=== PATIENT | female | born 1995 | race Caucasian/White ===

== ENCOUNTER 2016-06-19 16:18 | Emergency (ER) | payer OTHER ==
--- NOTE | 2016-06-19 19:18 | ED CLINICAL REPORT ---
Clinical Report - Physicians/Mid Levels [facility] [address] [place] [address] 06/19/2016 16:23 [id number] Time Seen: 17:12; initial patient contact. Arrived- By private vehicle. Historian- patient. HISTORY OF PRESENT ILLNESS Chief Complaint: VOMITING. This started today and is still present. It was gradual in onset. The patient has had nausea and vomiting. No diarrhea, abdominal pain, constipation or flank pain. The illness is described as mild. Similar symptoms previously: None. Recent medical care: Not recently seen/assessed. REVIEW OF SYSTEMS No fever or headache. She has had epistaxis and nasal congestion. All systems otherwise negative, except as recorded above. PAST HISTORY . Allergic Reaction. Additional Surgeries: no known surgeries. Medications: Vitamins Oral. Allergies: No Known Drug Allergy. SOCIAL HISTORY Never smoker. No alcohol use or drug use. ADDITIONAL NOTES The nursing notes have been reviewed with agreement regarding the chief complaint, PMH and patient medications and allergies. PHYSICAL EXAM Vital Signs: 06/19/2016 17:00 BP: 114/54. HR: 96. RR: 18. O2 saturation: 100%. Temp: 98.8 F. Pain level now: 2/10. Have been reviewed. Hypotensive. Heart rate normal. Respiratory rate normal. Temperature normal. Oxygen saturation normal. Appearance: Alert. Oriented X3. No acute distress. Eyes: Eyes normal inspection. ENT: Pharynx normal. CVS: Normal heart rate and rhythm. Heart sounds normal. Respiratory: No respiratory distress. Breath sounds normal. Abdomen: Soft and nontender. Bowel sounds normal. Back: Normal inspection. No CVA tenderness. Skin: Skin warm and dry. Normal skin color. No rash. Normal skin turgor. Extremities: No lower extremity edema. Neuro: Oriented X 3. LABS, X-RAYS, AND EKG Laboratory Tests: UA-Culture if indicated: (RENEA: 06/19/2016 18:35) ( MsgRcvd 06/19/2016 18:57) Final results Test Result Flag Units (Reference) URINE COLOR YELLOW URINE APPEARANCE CLEAR URINE GLUCOSE NEGATIVE (NEGATIVE) URINE BILIRUBIN NEGATIVE (NEGATIVE) URINE KETONE 3+ (NEGATIVE) URINE SPECIFIC GRAVITY 1.025 (1.010-1.030) URINE PH 6.5 (5.0-8.0) URINE PROTEIN NEGATIVE (NEGATIVE) URINE UROBILINOGEN 0.2 EU/dL (0.2-1.0) URINE NITRITE NEGATIVE (NEGATIVE) URINE BLOOD NEGATIVE (NEGATIVE) URINE LEUK ESTERASE TRACE (NEGATIVE) URINE RBC 1-3 rbc/hpf (0-1) URINE WBC 3-5 wbc/hpf (0-1) URINE EPITHELIAL CELLS 3-5 EPI/hpf (0-5) URINE BACTERIA FEW (1+) (NONE SEEN) URINE COMMENT CULTURE INDICATED MUCUS 3+URINE CULTURES ARE SET-UP BASED ON THE FOLLOWING CRITERIA:POSITIVE NITRITEPOSITIVE LEUKOCYTE ESTERASEGREATER THAN 10 WHITE BLOOD CELLSMODERATE (2+) OR GREATER BACTERIA CBC w Diff: (RENEA: 06/19/2016 18:10) ( [facility] 06/19/2016 18:31) Final results Test Result Flag Units (Reference) WHITE BLOOD COUNT 10.8 K/uL (4.5-11.5) RED BLOOD COUNT 4.07 M/uL (4.00-5.20) HEMOGLOBIN 12.2 gm/dL (12.0-16.0) HEMATOCRIT 37.0 % (36.0-46.0) MEAN CELL VOLUME 91 fL (80-100) MEAN CORPUSCULAR HGB 30 pg (26-34) MEAN CORPUSCULAR HGB CONC 33 g/dL (31-37) RED CELL DISTRIBUTION WIDTH 12.9 % (11.6-14.8) PLATELET COUNT 117 L K/uL (150-400) NEUTROPHIL % 90.4 H % (50-75) LYMPH % 4.3 L % (25-40) MONO % 4.4 % (3-14) EOSINOPHIL % 0.5 % (0-4) BASOPHIL % 0.4 % (0-2) CMP: (RENEA: 06/19/2016 18:10) ( [facility] 06/19/2016 18:38) Final results Test Result Flag Units (Reference) GLUCOSE 83 mg/dL (70-110) BUN 7 mg/dL (7-18) CREATININE 0.5 L mg/dL (0.6-1.3) Estimated GFR >60 mL/min Estimated GFR- >60 mL/min Note: Persistent reduction over 3 months in eGFR<60 mL/min/1.73 m2 defines CKD. Patients with eGFR values>=60 mL/min/1.73 m2 may also have CKD if evidence ofpersistent proteinuria. Additional information may be foundat www.kidney.org. SODIUM 126 L mmol/L (136-145) POTASSIUM 3.4 L mmol/L (3.5-5.1) CHLORIDE 103 mmol/L (98-107) CARBON DIOXIDE 23 mmol/L (21-32) CALCIUM 9.1 mg/dL (8.5-10.1) TOTAL PROTEIN 5.7 L g/dL (6.4-8.2) ALBUMIN 2.8 L g/dL (3.3-5.0) BILIRUBIN, TOTAL 1.1 H mg/dL (0.0-1.0) ALKALINE PHOSPHATASE 69 U/L (46-116) AST (SGOT) 12 L U/L (15-37) ALT (SGPT) 17 U/L (12-78) Culture, Urine: (RENEA: 06/19/2016 18:35) ( MsgRcvd 06/20/2016 11:28) IP Test Result Flag Units (Reference) CULTURE, URINE DATE: 06/20/16 NO GROWTH AT:: NO GROWTH AT 1 DAY PRELIM REPORT: PRELIMINARY REPORT #1 . PROGRESS AND PROCEDURES Course of Care: 06/19/2016 19:00 BP: 116/64. HR: 88. RR: 16. O2 saturation: 100%. Pain level now: 0/10. Evaluation after IV fluids and IV antiemetic. Vital Signs: have been reviewed as normal. Physical exam findings are improved. Symptoms much better. Disposition: Discharged home in good and improved condition. Condition: good. CLINICAL IMPRESSION Viral gastroenteritis with dehydration. INSTRUCTIONS Your Current Medications: CONTINUE TAKING THE FOLLOWING MEDICATIONS: Vitamins Oral. Prescription Medications: Zofran (orally disintegrating tablets) 4 mg: take 1 orally every 6 hours as needed for nausea and vomiting. Dispense ten (10). No refill. Substitution is permissible. Follow-up: Screening today revealed the patient's blood pressure to be in the normal range. (Electronically signed by Kyle Ruff Dr. 06/20/2016 22:38)
--- NOTE | 2016-06-19 19:18 | ED CLINICAL REPORT ---
Clinical Report - Physicians/Mid Levels [facility] [address] [place] [address] 06/19/2016 16:23 [id number] Time Seen: 17:12; initial patient contact. Arrived- By private vehicle. Historian- patient. HISTORY OF PRESENT ILLNESS Chief Complaint: VOMITING. This started today and is still present. It was gradual in onset. The patient has had nausea and vomiting. No diarrhea, abdominal pain, constipation or flank pain. The illness is described as mild. Similar symptoms previously: None. Recent medical care: Not recently seen/assessed. REVIEW OF SYSTEMS No fever or headache. She has had epistaxis and nasal congestion. All systems otherwise negative, except as recorded above. PAST HISTORY . Allergic Reaction. Additional Surgeries: no known surgeries. Medications: Vitamins Oral. Allergies: No Known Drug Allergy. SOCIAL HISTORY Never smoker. No alcohol use or drug use. ADDITIONAL NOTES The nursing notes have been reviewed with agreement regarding the chief complaint, PMH and patient medications and allergies. PHYSICAL EXAM Vital Signs: 06/19/2016 17:00 BP: 114/54. HR: 96. RR: 18. O2 saturation: 100%. Temp: 98.8 F. Pain level now: 2/10. Have been reviewed. Hypotensive. Heart rate normal. Respiratory rate normal. Temperature normal. Oxygen saturation normal. Appearance: Alert. Oriented X3. No acute distress. Eyes: Eyes normal inspection. ENT: Pharynx normal. CVS: Normal heart rate and rhythm. Heart sounds normal. Respiratory: No respiratory distress. Breath sounds normal. Abdomen: Soft and nontender. Bowel sounds normal. Back: Normal inspection. No CVA tenderness. Skin: Skin warm and dry. Normal skin color. No rash. Normal skin turgor. Extremities: No lower extremity edema. Neuro: Oriented X 3. LABS, X-RAYS, AND EKG Laboratory Tests: UA-Culture if indicated: (RENEA: 06/19/2016 18:35) ( MsgRcvd 06/19/2016 18:57) Final results Test Result Flag Units (Reference) URINE COLOR YELLOW URINE APPEARANCE CLEAR URINE GLUCOSE NEGATIVE (NEGATIVE) URINE BILIRUBIN NEGATIVE (NEGATIVE) URINE KETONE 3+ (NEGATIVE) URINE SPECIFIC GRAVITY 1.025 (1.010-1.030) URINE PH 6.5 (5.0-8.0) URINE PROTEIN NEGATIVE (NEGATIVE) URINE UROBILINOGEN 0.2 EU/dL (0.2-1.0) URINE NITRITE NEGATIVE (NEGATIVE) URINE BLOOD NEGATIVE (NEGATIVE) URINE LEUK ESTERASE TRACE (NEGATIVE) URINE RBC 1-3 rbc/hpf (0-1) URINE WBC 3-5 wbc/hpf (0-1) URINE EPITHELIAL CELLS 3-5 EPI/hpf (0-5) URINE BACTERIA FEW (1+) (NONE SEEN) URINE COMMENT CULTURE INDICATED MUCUS 3+URINE CULTURES ARE SET-UP BASED ON THE FOLLOWING CRITERIA:POSITIVE NITRITEPOSITIVE LEUKOCYTE ESTERASEGREATER THAN 10 WHITE BLOOD CELLSMODERATE (2+) OR GREATER BACTERIA CBC w Diff: (RENEA: 06/19/2016 18:10) ( [facility] 06/19/2016 18:31) Final results Test Result Flag Units (Reference) WHITE BLOOD COUNT 10.8 K/uL (4.5-11.5) RED BLOOD COUNT 4.07 M/uL (4.00-5.20) HEMOGLOBIN 12.2 gm/dL (12.0-16.0) HEMATOCRIT 37.0 % (36.0-46.0) MEAN CELL VOLUME 91 fL (80-100) MEAN CORPUSCULAR HGB 30 pg (26-34) MEAN CORPUSCULAR HGB CONC 33 g/dL (31-37) RED CELL DISTRIBUTION WIDTH 12.9 % (11.6-14.8) PLATELET COUNT 117 L K/uL (150-400) NEUTROPHIL % 90.4 H % (50-75) LYMPH % 4.3 L % (25-40) MONO % 4.4 % (3-14) EOSINOPHIL % 0.5 % (0-4) BASOPHIL % 0.4 % (0-2) CMP: (RENEA: 06/19/2016 18:10) ( [facility] 06/19/2016 18:38) Final results Test Result Flag Units (Reference) GLUCOSE 83 mg/dL (70-110) BUN 7 mg/dL (7-18) CREATININE 0.5 L mg/dL (0.6-1.3) Estimated GFR >60 mL/min Estimated GFR- >60 mL/min Note: Persistent reduction over 3 months in eGFR<60 mL/min/1.73 m2 defines CKD. Patients with eGFR values>=60 mL/min/1.73 m2 may also have CKD if evidence ofpersistent proteinuria. Additional information may be foundat www.kidney.org. SODIUM 126 L mmol/L (136-145) POTASSIUM 3.4 L mmol/L (3.5-5.1) CHLORIDE 103 mmol/L (98-107) CARBON DIOXIDE 23 mmol/L (21-32) CALCIUM 9.1 mg/dL (8.5-10.1) TOTAL PROTEIN 5.7 L g/dL (6.4-8.2) ALBUMIN 2.8 L g/dL (3.3-5.0) BILIRUBIN, TOTAL 1.1 H mg/dL (0.0-1.0) ALKALINE PHOSPHATASE 69 U/L (46-116) AST (SGOT) 12 L U/L (15-37) ALT (SGPT) 17 U/L (12-78) Culture, Urine: (RENEA: 06/19/2016 18:35) ( MsgRcvd 06/20/2016 11:28) IP Test Result Flag Units (Reference) CULTURE, URINE DATE: 06/20/16 NO GROWTH AT:: NO GROWTH AT 1 DAY PRELIM REPORT: PRELIMINARY REPORT #1 . PROGRESS AND PROCEDURES Course of Care: 06/19/2016 19:00 BP: 116/64. HR: 88. RR: 16. O2 saturation: 100%. Pain level now: 0/10. Evaluation after IV fluids and IV antiemetic. Vital Signs: have been reviewed as normal. Physical exam findings are improved. Symptoms much better. Disposition: Discharged home in good and improved condition. Condition: good. CLINICAL IMPRESSION Viral gastroenteritis with dehydration. INSTRUCTIONS Your Current Medications: CONTINUE TAKING THE FOLLOWING MEDICATIONS: Vitamins Oral. Prescription Medications: Zofran (orally disintegrating tablets) 4 mg: take 1 orally every 6 hours as needed for nausea and vomiting. Dispense ten (10). No refill. Substitution is permissible. Follow-up: Screening today revealed the patient's blood pressure to be in the normal range. (Electronically signed by Kyle Ruff Dr. 06/20/2016 22:38)
--- NOTE | 2016-06-19 19:18 | ED ORDER SUMMARY ---
..... Patient: NOELLE SHARP OrderSheet [facility] VisitID: [id number] [place] [address] 20y, F Registration Date/Time: 06/19/2016 ORDER SHEET Weight: 81.6 kg (stated) Allergies: No Known Drug Allergy GENERAL ORDERS: CBC w Diff Urgent (18:06/19/2016 Kira Ashford) (Ack 18:14 NHouse ER Tech1) (18:59 NHouse ER Tech1) CMP Urgent (18:06/19/2016 Kira Ashford) (Ack 18:14 NHouse ER Tech1) (18:59 NHouse ER Tech1) UA-Culture if indicated Urgent (18:06/19/2016 Kira Ashford) (Ack 18:14 NHouse ER Tech1) (18:59 NHouse ER Tech1) MEDICATION ORDERS: IV FLUIDS: IV NS : initial bolus none -, then 1000 mL/hr for X1 (NOW) (18:06/19/2016 Kira Ashford) (18:18 [employer] R.N.) Zofran IV 4 mg (NOW) (18:06/19/2016 Kira Ashford) (18:19 [employer] R.N.) ORDER SHEET NOTES: [Electronically signed by Shu Reyes R.N. (22:40 06/19/2016)] [Electronically signed by Kyle Ruff Dr. (22:38 06/20/2016)] [Electronically locked/signed by Shu Reyes R.N. (22:40 06/19/2016)]
--- NOTE | 2016-06-19 19:18 | ED ORDER SUMMARY ---
..... Patient: NOELLE SHARP OrderSheet [facility] VisitID: [id number] [place] [address] 20y, F Registration Date/Time: 06/19/2016 ORDER SHEET Weight: 81.6 kg (stated) Allergies: No Known Drug Allergy GENERAL ORDERS: CBC w Diff Urgent (18:06/19/2016 Kira Ashford) (Ack 18:14 NHouse ER Tech1) (18:59 NHouse ER Tech1) CMP Urgent (18:06/19/2016 Kira Ashford) (Ack 18:14 NHouse ER Tech1) (18:59 NHouse ER Tech1) UA-Culture if indicated Urgent (18:06/19/2016 Kira Ashford) (Ack 18:14 NHouse ER Tech1) (18:59 NHouse ER Tech1) MEDICATION ORDERS: IV FLUIDS: IV NS : initial bolus none -, then 1000 mL/hr for X1 (NOW) (18:06/19/2016 Kira Ashford) (18:18 [employer] R.N.) Zofran IV 4 mg (NOW) (18:06/19/2016 Kira Ashford) (18:19 [employer] R.N.) ORDER SHEET NOTES: [Electronically signed by Shu Reyes R.N. (22:40 06/19/2016)] [Electronically signed by Kyle Ruff Dr. (22:38 06/20/2016)] [Electronically locked/signed by Shu Reyes R.N. (22:40 06/19/2016)]
--- NOTE | 2016-06-19 19:18 | ED NURSING NOTES ---
Clinical Report - Nurses [facility] [address] [place] [address] 06/19/2016 16:23 [id number] Triage time 17:Jun 19 2016. Acuity: LEVEL 3. Chief Complaint: (Vomiting, Abd pain. bloody nose). 17:00 06/19/16. SEPSIS SCREEN: Sepsis Screen: negative. Negative (no infection suspected/documented). RADHA COMA SCORE: [place] Coma Scale: 15- eyes open spontaneously (4); best verbal response- oriented x 4 (5); best motor response- obeys commands (6). --17:08 Shu Reyes R.N. 17:00 06/19/16. BP: 114/54. HR: 96. RR: 18. O2 saturation: 100%. Temp: 98.8 F. Pain level now: 07/19. --17:08 Shu Reyes R.N. Weight: 81.6 kg stated. Height/Length: 69 inches Per Patient. BMI: 26.6. --16:59 Shu Reyes R.N. Medications Vitamins Oral. --17:04 Shu Reyes R.N. Medication/allergy information source: the patient. --17:08 Shu Reyes R.N. Allergies No Known Drug Allergy. --17:04 Shu Reyes R.N. History Arrived by private vehicle. Historian: patient. Accompanied by family. This started today. No fever, weakness, cough, difficulty breathing or skin rash. Denies muscle aches. 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 PAST MEDICAL HX: Confirmed : LNMP: 12/23/15 EDC:09/28/16. In 3rd trimester. Has had care by private doctor. G 1. P 0. SOCIAL HX: Never smoker. No alcohol use or drug use. No infectious disease exposure. ABUSE ASSESSMENT: No report of abuse. SELF HARM ASSESSMENT: A self harm assessment was performed. The patient answered "no" to the question "Have you recently felt down, depressed, or hopeless?", "Have you noticed less interest or pleasure in doing things?", "Do you have thoughts of harming or killing yourself?", "Are you here because you tried to hurt yourself?", "Have you ever tried to hurt yourself before today?", "Have you recently had thoughts about harming or killing others?" and "Do you have any dangerous items in your possession?". FALL RISK ASSESSMENT: Fall risk assessment completed. No fall risk identified. NUTRITIONAL RISK ASSESSMENT: The nutritional risk assessment revealed no deficiencies. FUNCTIONAL ASSESSMENT: Functional assessment: no impairments noted. LEARNING NEEDS ASSESSMENT: The learning needs assessment revealed no barriers. SKIN INTEGRITY ASSESSMENT: Skin integrity risk assessment completed. No skin integrity risk identified. --17:08 Shu Reyes R.N. PROBLEMS: . Allergic Reaction. Immunizations. --17:04 Shu Reyes R.N. ADDITIONAL SURGERIES: no known surgeries. Interventions ID band on patient. --17:08 Shu Reyes R.N. NURSING PROGRESS NOTES 17:27 06/19/16. ( heart rate 130- per patient this is normal for her). --17:27 Shu Reyes R.N. 17:37 06/19/16. The initial plan of care for this patient includes an assessment with efforts to address the presence of pain; impairment of the gastrointestinal system; need for sustenance. This plan of care was discussed with the patient. Patient gowned. Reassurance given. Two patient identifiers checked. Call light placed in reach. Side rails up x 1. Bed placed in lowest position. Brakes of bed on. Patient ready for evaluation. --18:50 Shu Reyes R.N. 18:05 06/19/2016 Site #1 started via IV in the right antecubital space with an 18g angiocath, with aseptic technique and good blood return; one attempt. Blood drawn: rainbow set. Labeled in the presence of the patient and sent to the lab. Saline lock flushed with 10 mL saline. --18:18 Shu Reyes R.N. 18:06 06/19/2016 Started bag #1 1000 mL IV Fluids IV NS (Saline); at 2000 mL/hr over 30 minute(s) via site #1. Allergies verified and confirmed 5 rights. IV patency established. IV site checked: no pain, redness, or swelling. IV flushed thoroughly pre- and post-medication administration. --18:18 Shu Reyes R.N. 18:07 06/19/2016 Zofran (Ondansetron HCl) IVP 4 mg given over 1 minute(s) via site #1. Allergies verified and confirmed 5 rights. IV patency established. IV site checked: no pain, redness, or swelling. IV flushed thoroughly pre- and post-medication administration. IVP given by RN. --18:19 Shu Reyes R.N. 18:35 06/19/2016 IV Fluids IV NS Discontinued: bag #1 infused. Total amount infused: 1000 mL. IV patency established. IV site checked: no pain, redness, or swelling. IV flushed thoroughly. --18:49 Shu Reyes R.N. 21:40 06/19/16. BP: 100/76. HR: 90. RR: 16. O2 saturation: 100%. Temp: 98.5 F. Pain level now 0/10. --22:38 Shu Reyes R.N. DISPOSITION / DISCHARGE 21:35 06/19/2016 Site #1 removed upon discharge. Catheter intact. --22:38 Shu Reyes R.N. 21:38 06/19/16. Condition at departure: improved and stable. The goals identified in the patient's plan of care were met. No learning barriers present. Discharge instructions provided and reviewed with the patient. Reviewed medication(s) side effects, precautions, dosing and course information. Prescription(s) given to the patient. Reviewed referral to an assembly hand and a primary care physician for followup. Patient verbalized understanding. Written instructions provided in [place]. The patient was discharged home and accompanied by family. She left the Emergency Department ambulatory and via private vehicle. Family member driving. FALL RISK ASSESSMENT: Fall risk assessment completed. No fall risk identified. --22:39 Shu Reyes R.N. 21:40 06/19/16. BP: 100/76. HR: 90. RR: 16. O2 saturation: 100%. Temp: 98.5 F. Pain level now 0/10. --22:39 Shu Reyes R.N. Departure time: 21:40 Jun 19 2016. --22:40 Shu Reyes R.N. Locked/Released at 06/19/2016 22:40 by Shu Reyes R.N.
--- NOTE | 2016-06-19 19:18 | ED NURSING NOTES ---
Clinical Report - Nurses [facility] [address] [place] [address] 06/19/2016 16:23 [id number] Triage time 17:Jun 19 2016. Acuity: LEVEL 3. Chief Complaint: (Vomiting, Abd pain. bloody nose). 17:00 06/19/16. SEPSIS SCREEN: Sepsis Screen: negative. Negative (no infection suspected/documented). RADHA COMA SCORE: [place] Coma Scale: 15- eyes open spontaneously (4); best verbal response- oriented x 4 (5); best motor response- obeys commands (6). --17:08 Shu Reyes R.N. 17:00 06/19/16. BP: 114/54. HR: 96. RR: 18. O2 saturation: 100%. Temp: 98.8 F. Pain level now: 07/19. --17:08 Shu Reyes R.N. Weight: 81.6 kg stated. Height/Length: 69 inches Per Patient. BMI: 26.6. --16:59 Shu Reyes R.N. Medications Vitamins Oral. --17:04 Shu Reyes R.N. Medication/allergy information source: the patient. --17:08 Shu Reyes R.N. Allergies No Known Drug Allergy. --17:04 Shu Reyes R.N. History Arrived by private vehicle. Historian: patient. Accompanied by family. This started today. No fever, weakness, cough, difficulty breathing or skin rash. Denies muscle aches. 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 PAST MEDICAL HX: Confirmed : LNMP: 12/23/15 EDC:09/28/16. In 3rd trimester. Has had care by private doctor. G 1. P 0. SOCIAL HX: Never smoker. No alcohol use or drug use. No infectious disease exposure. ABUSE ASSESSMENT: No report of abuse. SELF HARM ASSESSMENT: A self harm assessment was performed. The patient answered "no" to the question "Have you recently felt down, depressed, or hopeless?", "Have you noticed less interest or pleasure in doing things?", "Do you have thoughts of harming or killing yourself?", "Are you here because you tried to hurt yourself?", "Have you ever tried to hurt yourself before today?", "Have you recently had thoughts about harming or killing others?" and "Do you have any dangerous items in your possession?". FALL RISK ASSESSMENT: Fall risk assessment completed. No fall risk identified. NUTRITIONAL RISK ASSESSMENT: The nutritional risk assessment revealed no deficiencies. FUNCTIONAL ASSESSMENT: Functional assessment: no impairments noted. LEARNING NEEDS ASSESSMENT: The learning needs assessment revealed no barriers. SKIN INTEGRITY ASSESSMENT: Skin integrity risk assessment completed. No skin integrity risk identified. --17:08 hSu Reyes R.N. PROBLEMS: . Allergic Reaction. Immunizations. --17:04 Shu Reyes R.N. ADDITIONAL SURGERIES: no known surgeries. Interventions ID band on patient. --17:08 Shu Reyes R.N. NURSING PROGRESS NOTES 17:27 06/19/16. ( heart rate 130- per patient this is normal for her). --17:27 Shu Reyes R.N. 17:37 06/19/16. The initial plan of care for this patient includes an assessment with efforts to address the presence of pain; impairment of the gastrointestinal system; need for sustenance. This plan of care was discussed with the patient. Patient gowned. Reassurance given. Two patient identifiers checked. Call light placed in reach. Side rails up x 1. Bed placed in lowest position. Brakes of bed on. Patient ready for evaluation. --18:50 Shu Reyes R.N. 18:05 06/19/2016 Site #1 started via IV in the right antecubital space with an 18g angiocath, with aseptic technique and good blood return; one attempt. Blood drawn: rainbow set. Labeled in the presence of the patient and sent to the lab. Saline lock flushed with 10 mL saline. --18:18 Shu Reyes R.N. 18:06 06/19/2016 Started bag #1 1000 mL IV Fluids IV NS (Saline); at 2000 mL/hr over 30 minute(s) via site #1. Allergies verified and confirmed 5 rights. IV patency established. IV site checked: no pain, redness, or swelling. IV flushed thoroughly pre- and post-medication administration. --18:18 Shu Reyes R.N. 18:07 06/19/2016 Zofran (Ondansetron HCl) IVP 4 mg given over 1 minute(s) via site #1. Allergies verified and confirmed 5 rights. IV patency established. IV site checked: no pain, redness, or swelling. IV flushed thoroughly pre- and post-medication administration. IVP given by RN. --18:19 Shu Reyes R.N. 18:35 06/19/2016 IV Fluids IV NS Discontinued: bag #1 infused. Total amount infused: 1000 mL. IV patency established. IV site checked: no pain, redness, or swelling. IV flushed thoroughly. --18:49 Shu Reyes R.N. 21:40 06/19/16. BP: 100/76. HR: 90. RR: 16. O2 saturation: 100%. Temp: 98.5 F. Pain level now 0/10. --22:38 Shu Reyes R.N. DISPOSITION / DISCHARGE 21:35 06/19/2016 Site #1 removed upon discharge. Catheter intact. --22:38 Shu Reyes R.N. 21:38 06/19/16. Condition at departure: improved and stable. The goals identified in the patient's plan of care were met. No learning barriers present. Discharge instructions provided and reviewed with the patient. Reviewed medication(s) side effects, precautions, dosing and course information. Prescription(s) given to the patient. Reviewed referral to an php consultant and a primary care physician for followup. Patient verbalized understanding. Written instructions provided in [place]. The patient was discharged home and accompanied by family. She left the Emergency Department ambulatory and via private vehicle. Family member driving. FALL RISK ASSESSMENT: Fall risk assessment completed. No fall risk identified. --22:39 Shu Reyes R.N. 21:40 06/19/16. BP: 100/76. HR: 90. RR: 16. O2 saturation: 100%. Temp: 98.5 F. Pain level now 0/10. --22:39 Shu Reyes R.N. Departure time: 21:40 Jun 19 2016. --22:40 Shu Reyes R.N. Locked/Released at 06/19/2016 22:40 by Shu Reyes R.N.
--- NOTE | 2016-06-20 22:38 | ED MED RECONCILIATION SUMMARY ---
Patient: NOELLE SHARP Medication Reconciliation Report [facility] VisitID: [id number] [place] [address] 20y, F Registration Date/Time: 06/19/2016 Weight: 81.6 kg Height/Length: 69 in. BMI: 26.6 ALLERGIES: No Known Drug Allergy The patient's Home Medications are listed below: CONTINUE TAKING THE FOLLOWING MEDICATIONS: Vitamins Oral The source(s) of the original Home Medication information: patient The following Medications were given to the patient in the Emergency Department: IV NS IV Fluids bolus 0, then 2000 mL/hr, administered: 06/19/2016 6:06:00 PM Zofran [IVP] IVP 4 mg, administered: 06/19/2016 6:07:00 PM The following Medications were prescribed to the patient: Zofran (orally disintegrating tablets) 4 mg: take 1 orally every 6 hours as needed for nausea and vomiting. Dispense ten (10). No refill. Substitution is permissible. -- Kyle Ruff Dr.
--- NOTE | 2016-06-20 22:38 | ED DISCHARGE INSTRUCTIONS ---
Patient: NOELLE SHARP General Instructions [facility] VisitID: [id number] [place] [address] 20y, F Registration Date/Time: 06/19/2016 Viral gastroenteritis with dehydration. INSTRUCTIONS Your Current Medications: CONTINUE TAKING THE FOLLOWING MEDICATIONS: Vitamins Oral. Prescription Medications: Zofran (orally disintegrating tablets) 4 mg: take 1 orally every 6 hours as needed for nausea and vomiting. Dispense ten (10). No refill. Substitution is permissible. Follow-up: Screening today revealed the patient's blood pressure to be in the normal range. ADDITIONAL INFORMATION Viral Gastroenteritis (6Yr-Adult) Gastroenteritis is another name for thestomach flu.It is most often caused by a virus that affects the stomach and intestinal tract. Symptoms include stomach cramping and fever, vomiting and/or diarrhea, and can last from 2 to 7 days. The danger from repeated vomiting or diarrhea is dehydration. This is the loss of too much water and minerals from the body. When this occurs, body fluids must be replaced. Antibiotics are not effective for this illness, but simple home treatment will be helpful. Home Care If symptoms are severe, rest at home for the next 24 hours. Avoid tobacco, caffeine, and alcohol use, which can worsen symptoms. Acetaminophen (Tylenol) or ibuprofen (Motrin, Advil) may be usedfor fever or pain unless another medication was prescribed. NOTE: If you have chronic liver or kidney disease or ever had a stomach ulcer or GI bleeding, talk with your doctor before using these medicines. Aspirin should never be used in anyone under 18 years of age who is ill with a fever. It may cause severe liver damage. If medicines for diarrhea or vomiting were prescribed, be sure they are takenonly as directed. If vomiting, drink small amounts of clear fluids (such as water, sports drinks, clear sodas) at frequent intervals to prevent dehydration. Start with 1 to 2 tablespoons every 10 minutes. Once vomiting stops, follow these guidelines: During The First 12 To 24 Hours follow the diet below: Beverages: Sport drinks like Gatorade, soft drinks without caffeine; mojgan bill, mineral water (plain or flavored), decaffeinated tea and coffee. Soups: Clear broth, consomm and bouillon Desserts: Plain gelatin (Jell-O), Popsicles and fruit juice bars. During The Next 24 Hours you may add the following to the above: Hot cereal, plain toast, bread, rolls, crackers Plain noodles, rice, mashed potatoes, chicken noodle or rice soup Unsweetened canned fruit (avoid pineapple), bananas Limit fat intake to less than 15 grams per day by avoiding margarine, butter, oils, mayonnaise, sauces, gravies, fried foods, peanut butter, meat, poultry, and fish. Limit fiber; avoid raw or cooked vegetables, fresh fruits (except bananas), and bran cereals. Limit caffeine and chocolate. Do not use spices or seasonings except salt. During The Next 24 Hours The patient can gradually resume a normal diet as symptoms lessen. Preventing Spread Hand washing with soap and water is the best way to prevent the spread of viruses. Caregivers should wash their hands before andafter touching the sick person. The sick person, as well as everyone in the family,should wash their hands after using the toilet and before meals. Clean the toilet after each use. People with diarrhea should not prepare food for others. If you are preparing your own foods, wash your hands before and after. Follow Up with your doctor as advised. Call your doctor if you are not improving over the next 2 to 3 days. If a stool (diarrhea) sample was taken, you may call in 2 days (or as directed) for the results. Get Prompt Medical Attention if any of the following occur: Increasing abdominal pain Continued vomiting (unable to keep liquids down) Frequent diarrhea (more than 5 times a day) Blood in vomit or stool (black or red color) Dark urine, reduced urine output, or extreme thirst Weakness, dizziness, fainting Drowsiness, confusion, stiff neck, or seizure Fever of 100.4F (38C) oral or higher, not better with fever medication New rash Ondansetron Oral disintegrating tablet What is this medicine? ONDANSETRON (on DK se rhett) is used to treat nausea and vomiting caused by chemotherapy. It is also used to prevent or treat nausea and vomiting after surgery. How should I use this medicine? These tablets are made to dissolve in the mouth. Do not try to push the tablet through the foil backing. With dry hands, peel away the foil backing and gently remove the tablet. Place the tablet in the mouth and allow it to dissolve, then swallow. While you may take these tablets with water, it is not necessary to do so. Talk to your train attendant regarding the use of this medicine in children. Special care may be needed. What side effects may I notice from receiving this medicine? Side effects that you should report to your doctor or health nursing care partner as soon as possible: allergic reactions like skin rash, itching or hives, swelling of the face, lips, or tongue breathing problems dizziness fast or irregular heartbeat feeling faint or lightheaded, falls fever and chills swelling of the hands and feet tightness in the chest Side effects that usually do not require medical attention (report to your doctor or health nursing care partner if they continue or are bothersome): constipation or diarrhea headache What may interact with this medicine? Do not take this medicine with any of the following medications: -apomorphine -cisapride -dofetilide -dronedarone -pimozide -thioridazine -ziprasidone This medicine may also interact with the following medications: -carbamazepine -phenytoin -rifampicin -tramadol -other medicines that prolong the QT interval (cause an abnormal heart rhythm) What if I miss a dose? If you miss a dose, take it as soon as you can. If it is almost time for your next dose, take only that dose. Do not take double or extra doses. Where should I keep my medicine? Keep out of the reach of children. Store between 2 and 30 degrees C (36 and 86 degrees F). Throw away any unused medicine after the expiration date. What should I tell my health care provider before I take this medicine? They need to know if you have any of these conditions: heart disease history of irregular heartbeat liver disease low levels of magnesium or potassium in the blood an unusual or allergic reaction to ondansetron, granisetron, other medicines, foods, dyes, or preservatives or trying to get breast-feeding What should I watch for while using this medicine? Check with your doctor or health nursing care partner as soon as you can if you have any sign of an allergic reaction. You have been given the following additional information: Gastroenteritis, Viral (6Y-Adult) Ondansetron Oral disintegrating tablet (Electronically signed by Kyle Ruff Dr. 06/20/2016 22:38)
--- NOTE | 2016-06-20 22:38 | ED MAR SUMMARY ---
..... Medication Administration Record [facility] [address] [place] [address] Patient: NOELLE SHARP Visit ID: [id number] 20y, F Weight: 81.6 kg Height/Length: 69 in BMI: 26.6 ALLERGIES: No Known Drug Allergy Start 18:06 06/19/2016 Shu Reyes R.N., Stop 18:35 06/19/2016 Shu Reyes R.N. Medication Administered: IV NS (SALINE), Dose: IV Fluids over 30 minute(s), Rate: 2000 mL/hr, Dispensed: 1000 mL bag, Site: #1 right AC. Medication Ordered: IV NS : initial bolus none -, then 1000 mL/hr for X1 (NOW). Given 18:07 06/19/2016 Shu Reyes R.N. Medication Administered: ZOFRAN [IVP] (ONDANSETRON HCL), Dose: 4 mg IVP over 1 minute(s), Site: #1 right AC. Medication Ordered: Zofran IV 4 mg (NOW).
--- NOTE | 2016-06-20 22:38 | ED MED RECONCILIATION SUMMARY ---
Patient: NOELLE SHARP Medication Reconciliation Report [facility] VisitID: [id number] [place] [address] 20y, F Registration Date/Time: 06/19/2016 Weight: 81.6 kg Height/Length: 69 in. BMI: 26.6 ALLERGIES: No Known Drug Allergy The patient's Home Medications are listed below: CONTINUE TAKING THE FOLLOWING MEDICATIONS: Vitamins Oral The source(s) of the original Home Medication information: patient The following Medications were given to the patient in the Emergency Department: IV NS IV Fluids bolus 0, then 2000 mL/hr, administered: 06/19/2016 6:06:00 PM Zofran [IVP] IVP 4 mg, administered: 06/19/2016 6:07:00 PM The following Medications were prescribed to the patient: Zofran (orally disintegrating tablets) 4 mg: take 1 orally every 6 hours as needed for nausea and vomiting. Dispense ten (10). No refill. Substitution is permissible. -- Kyle Ruff Dr.
--- NOTE | 2016-06-20 22:38 | ED MAR SUMMARY ---
..... Medication Administration Record [facility] [address] [place] [address] Patient: NOELLE SHARP Visit ID: [id number] 20y, F Weight: 81.6 kg Height/Length: 69 in BMI: 26.6 ALLERGIES: No Known Drug Allergy Start 18:06 06/19/2016 Shu Reyes R.N., Stop 18:35 06/19/2016 Shu Reyes R.N. Medication Administered: IV NS (SALINE), Dose: IV Fluids over 30 minute(s), Rate: 2000 mL/hr, Dispensed: 1000 mL bag, Site: #1 right AC. Medication Ordered: IV NS : initial bolus none -, then 1000 mL/hr for X1 (NOW). Given 18:07 06/19/2016 Shu Reyes R.N. Medication Administered: ZOFRAN [IVP] (ONDANSETRON HCL), Dose: 4 mg IVP over 1 minute(s), Site: #1 right AC. Medication Ordered: Zofran IV 4 mg (NOW).
== END 2016-06-19 19:40 | disposition home or self-care (01) ==
LOC: ED SRH 16:18
DX: A08.4 Viral intestinal infection, unspecified (principal); E86.0 Dehydration
CPT/HCPCS: 90004; 90100; 90469; 95059